=== PATIENT | male | born 1975 | race Caucasian/White ===

== ENCOUNTER → 2019-01-04 | Day surgery (SDC) | payer BC ==
[2018-12-31 16:43] LABS: ANION GAP 13.1 mmol/L (8-16); BLOOD UREA NITROGEN 14 mg/dL (7-26); BUN/CREATININE RATIO 16 (6-25); CALCIUM 9.8 mg/dL (8.4-10.2); CARBON DIOXIDE 27 mmol/L (22-29); CHLORIDE 105 mmol/L (98-107); CREATININE, SERUM 0.88 mg/dL (0.72-1.25); EST GLOMERULAR FILTRATION RATE > 60 ML/MIN (60-); GLUCOSE 87 mg/dL (74-118); POTASSIUM 4.1 mmol/L (3.5-5.1); SODIUM 141 mmol/L (136-145)
[~2019-01-04] MED LIST: ACETAMINOPHEN/CODEINE 300MG - 30MG TAB ONE; BUPIVACAINE HCL 0.5% 10ML MPF VIAL INJ ONE; CEFAZOLIN SOD 1 GM/NS 50ML 50 ML IV ONE; CRESTOR10 MG PO; DEXAMETHASONE SOD PHOS INJ 4 MG/ML VIAL ONE; FENTANYL CITRATE/PF 100MCG/2 ML INJ ONE; GLIMEPERIDE PO; KETAMINE HCL INJ 50 MG/ML 10 ML VIAL ONE; KETOROLAC TROMETHAMINE 30 MG/ML VIAL ONE; LIDOCAINE HCL 2% LOCAL INJ 5 ML SDV VIAL INJ ONE; METFORMIN HCL500 MG PO; MIDAZOLAM HCL 2 MG/2 ML VIAL ONE; MINOCYCLINE HC100 M1 PO; MUPIROCIN 2% OINT 22 GM TUBE ONE; OMEPRAZOLE40 MG PO; ONDANSETRON HCL INJ 2MG/ML 2ML 2 MG/ML VIAL ONE; PROPOFOL IV EMULSION 10 MG/ML 20 ML VIAL ONE; RANITIDINE HCL300 MG PO; SEVOFLURANE INHAL SOLN 250 ML PEN BTL ONE; TRIBENZOR 40-51 EAC1 PO
--- OUTSIDE RECORDS SUMMARY | 2019-01-04 05:21 | XMS REPORT | Continuity of Care Document ---
Author Author [facility] Interface Address Unknown Phone Unavailable Problems Problem Status Onset Date Classification Date Reported Comments Source EKG Active 12/01/2016 [facility] CHEST PAIN Active 09/12/2015 [facility] Diabetes Resolved Problem 12/04/2016 [facility] GERD (<span [id number]">Confirmed</span>) Resolved Problem 12/04/2016 [facility] Hyperlipidemia Resolved Problem 12/04/2016 [facility] Hypertension Resolved Problem 12/04/2016 [facility] Medications Medication Details Route Status Patient Instructions Ordering Provider Order Date Source Zocor 40 mg, 1 tab, Route: PO, Drug form: TAB, Bedtime, Dosing Weight 188.004, kg, Start date: 09/13/15 21:00:00, Duration: 30 day, Stop date: 10/12/15 21:00:00Notes: (Same as: Zocor) Inactive 09/14/2015 [facility] Protonix 40 mg, 1 tab, Route: PO, Drug form: ECTAB, Before Dinner, Start date: 09/13/15 16:30:00, Duration: 30 day, Stop date: 10/12/15 16:30:00Notes: Tablet should not be chewed or crushed. (Same as: Protonix) Inactive 09/13/2015 [facility] Norvasc 10 mg, 2 tab, Route: PO, Drug form: TAB, Daily, Start date: 09/13/15 9:00:00, Duration: 30 day, Stop date: 10/12/15 9:00:00Notes: (Same as: Norvasc) Inactive 09/13/2015 [facility] Benicar 40 mg, 2 tab, Route: PO, Drug form: TAB, Daily, Start date: 09/13/15 9:00:00, Duration: 30 day, Stop date: 10/12/15 9:00:00 Inactive 09/13/2015 [facility] Omeprazole 40 mg, Route: PO, Drug form: DRC, Daily, Dosing Weight 188.004, kg, Start date: 09/13/15 9:00:00, Duration: 30 day, Stop date: 10/12/15 9:00:00 No Longer Active 09/13/2015 [facility] Amlodipine 10 MG / Hydrochlorothiazide 25 MG / Olmesartan medoxomil 40 MG Oral Tablet [Tribenzor 40/10/25] 1 tab, Route: PO, Drug Form: TAB, Dosing Weight 188.004, kg, Daily, Start date: 09/13/15 9:00:00, Duration: 30 day, Stop date: 10/12/15 9:00:00 No Longer Active 09/13/2015 [facility] Aspirin 81 MG Enteric Coated Tablet 81 mg, 1 tab, Route: PO, Drug form: ECTAB, Daily, Dosing Weight 127.273, kg, Start date: 09/13/15 9:00:00, Duration: 30 day, Stop date: 10/12/15 9:00:00Notes: Do not crush or chew. (Same As: Ecotrin) Inactive 09/13/2015 [facility] Allopurinol 300 mg, 1 tab, Route: PO, Drug form: TAB, Daily, Dosing Weight 188.004, kg, Start date: 09/13/15 9:00:00, Duration: 30 day, Stop date: 10/12/15 9:00:00Notes: (Same as: Zyloprim) Inactive 09/13/2015 [facility] hydrochlorothiazide 25 mg oral tablet 25 mg, 1 tab, Route: PO, Drug form: TAB, Daily, Start date: 09/13/15 9:00:00, Duration: 30 day, Stop date: 10/12/15 9:00:00Notes: (Same as: Hydrodiuril) With food. Inactive 09/13/2015 [facility] Metformin hydrochloride 500 MG Oral Tablet 500 mg, 1 tab, Route: PO, Drug form: TAB, Before Breakfast, Dosing Weight 188.004, kg, Start date: 09/13/15 7:30:00, Duration: 30 day, Stop date: 10/12/15 7:30:00Notes: (Same as: Glucophage) Take with meal Inactive 09/13/2015 [facility] Acetaminophen 325 MG / Hydrocodone Bitartrate 5 MG Oral Tablet 1 tab, Route: PO, Drug Form: TAB, Dosing Weight 188.004, kg, Q6H, PRN Pain Score 4-6, Start date: 09/12/15 21:29:00, Duration: 30 day, Stop date: 10/12/15 21:28:00Notes: (Same as: [place] 325/5) Do not exceed 4gm/day of acetaminophen. No Longer Active 09/13/2015 [facility] Ambien 5 mg, Route: PO, Bedtime, Dosing Weight 188.004, kg, PRN as needed for sleep, Start date: 09/12/15 21:28:00, Duration: 30 day, Stop date: 10/12/15 21:27:00 Inactive 09/13/2015 [facility] Saline Flush 0.9% 10 ml, Route: IVP, Drug Form: INJ, Dosing Weight 127.273, kg, Q12H, Start date: 09/12/15 21:00:00, Duration: 30 day, Stop date: 10/12/15 9:00:00 Inactive 09/13/2015 [facility] BD Normal Saline Flush 10 mL, Route: IV, Drug Form: INJ, PRN, PRN Line Flush, Start date: 09/12/15 16:38:00, Duration: 30 day, Stop date: 10/12/15 16:37:00Notes: (Same as: BD Posiflush) No Longer Active 09/12/2015 [facility] Sodium Chloride 0.9% IV 25 mL, Route: IV, Start date: 09/12/15 16:38:00, Duration: 30 day, Stop date: 10/12/15 16:37:00, PRN Line Flush No Longer Active 09/12/2015 [facility] Simvastatin 40 MG Oral Tablet [Zocor] 40 mg=1 tab, PO, Bedtime, # 90 tab, 1 Refill(s) Active 09/12/2015 [facility] omeprazole 40 mg oral delayed release capsule 40 mg=1 cap, PO, Daily, # 30 cap, 0 Refill(s) Active 09/12/2015 [facility] Metformin hydrochloride 500 MG Oral Tablet 500 mg=1 tab, PO, Daily, take with a meal, # 30 tab, 1 Refill(s) Active 09/12/2015 [facility] Melatonin 3 MG Extended Release Tablet 3 mg, 1 tab, Route: PO, Drug Form: TAB, Dosing Weight 127.273, kg, Bedtime, PRN as needed for insomnia, Start date: 09/12/15 15:24:00, Duration: 30 day, Stop date: 10/12/15 15:23:00Notes: (Same as: Melatonin) No Longer Active 09/12/2015 [facility] Zofran 4 mg, 2 mL, Route: IV, Drug form: INJ, Q8H, Dosing Weight 127.273, kg, PRN as needed for nausea/vomiting, Start date: 09/12/15 15:24:00, Duration: 30 day, Stop date: 10/12/15 15:23:00Notes: (Same as: Zofran) MEDICATION WASTE Product Size: 4 mg Product Wasted: ___ mg No Longer Active 09/12/2015 [facility] Tylenol 650 mg, 2 tab, Route: PO, Drug form: TAB, Q6H, Dosing Weight 127.273, kg, PRN Pain 1-3/Temp > 100.4 F, Start date: 09/12/15 15:24:00, Stop date: 10/12/15 15:23:00Notes: Do not exceed 4 gm/day. (Same as: Tylenol) No Longer Active 09/12/2015 [facility] Insulin, Aspart, Human 4 unit, 0.04 mL, Route: SUB-Q, Drug form: SOLN, TID-Before Meals, Dosing Weight 127.273, kg, PRN Blood Glucose Results, Start date: 09/12/15 15:14:00, Duration: 30 day, Stop date: 10/12/15 15:13:00Notes: Roll in palms of hands gently; Do not shake vigorously. (Same as: NovoLOG) "single patient use only" WASTE: F/P - Black; E - Municipal Trash Bin Stable for 28 days at room temperature. Expires in days from Date No Longer Active 09/12/2015 [facility] Glucagon 1 mg, Route: IM, Drug form: PDR/INJ, PRN, Dosing Weight 127.273, kg, PRN Blood Glucose Results, Start date: 09/12/15 15:14:00, Duration: 30 day, Stop date: 10/12/15 15:13:00 No Longer Active 09/12/2015 [facility] Dextrose 50% Syringe 25 gm, 50 mL, Route: IVP, Drug Form: INJ, Dosing Weight 127.273, kg, PRN, PRN Blood Glucose Results, Start date: 09/12/15 15:14:00, Duration: 30 day, Stop date: 10/12/15 15:13:00 No Longer Active 09/12/2015 [facility] Saline Flush 0.9% 10 ml, Route: IVP, Drug Form: INJ, Dosing Weight 127.273, kg, PRN, PRN Line Flush, Start date: 09/12/15 15:13:00, Duration: 30 day, Stop date: 10/12/15 15:12:00Notes: (Same as: BD Posiflush) Inactive 09/12/2015 [facility] Nitroglycerin 0.4 mg, 1 tab, Route: SL, Drug form: TAB, Q5Min, Dosing Weight 127.273, kg, PRN Chest Pain, Start date: 09/12/15 15:13:00, Duration: 3 doses or times, Stop date: Limited # of timesNotes: (Same as:Sade Fultontat) "Do Not Crush" Sublingual tablet No Longer Active 09/12/2015 [facility] Omeprazole PO, Daily, 0 Refill(s) Inactive 09/12/2015 [facility] allopurinol 300 mg oral tablet 300 mg=1 tab, PO, Daily, 0 Refill(s) Active 09/12/2015 [facility] Amlodipine 10 MG / Hydrochlorothiazide 25 MG / Olmesartan medoxomil 40 MG Oral Tablet [Tribenzor 40/10/25] 1 tab, PO, Daily, 0 Refill(s) Active 09/12/2015 [facility] Nitroglycerin 0.4 MG Sublingual Tablet 0.4 mg, 1 tab, Route: SL, Drug form: TAB, ONCE, Dosing Weight 127.273, kg, Start date: 09/12/15 12:41:00, Stop date: 09/12/15 12:41:00Notes: (Same as:Nitroquick, Nitrostat) "Do Not Crush" Sublingual tablet Inactive 09/12/2015 [facility] Simvastatin PO, Bedtime, 0 Refill(s) Inactive 09/12/2015 [facility] Metformin PO, 0 Refill(s) Inactive 09/12/2015 [facility] Aspirin 81 MG Chewable Tablet 324 mg, 4 tab, Route: PO, Drug form: CHEWTAB, ONCE, Dosing Weight 127.273, kg, Priority: STAT, Start date: 09/12/15 12:38:00, Stop date: 09/12/15 12:38:00Notes: Take with food. Inactive 09/12/2015 [facility] Saline Flush 0.9% 10 mL, Route: IVP, Drug Form: INJ, kg, PRN, PRN Line Flush, Start date: 09/12/15 12:07:00, Duration: 30 day, Stop date: 10/12/15 12:06:00Notes: (Same as: BD Posiflush) Inactive 09/12/2015 [facility] Allergies, Adverse Reactions, Alerts Substance Category Reaction Severity Reaction type Status Date Reported Comments Source Immunizations Immunization Date Given Site Status Last Updated Comments Source Results Order Name Results Value Reference Range Date Interpretation Comments Source CARDIAC ENZYMES CK MB Index 0.4 0.0 - 2.5 09/13/2015 [facility] CARDIAC ENZYMES CK MB 0.8 ng/mL 0.5 - 3.6 09/13/2015 [facility] CARDIAC ENZYMES Total CK 181 unit/L 12 - 191 09/13/2015 [facility] CARDIAC ENZYMES Troponin-I null 0.00 - 0.40 09/13/2015 [facility] CARDIAC ENZYMES CK MB Index null 0.0 - 2.5 09/13/2015 [facility] CARDIAC ENZYMES CK MB null 0.5 - 3.6 09/13/2015 [facility] CARDIAC ENZYMES Total CK 190 unit/L 12 - 191 09/13/2015 [facility] CARDIAC ENZYMES Troponin-I null 0.00 - 0.40 09/13/2015 [facility] LIPIDS VLDL 39 09/12/2015 [facility] LIPIDS LDL (Calculated) 64 mg/dL <=99 mg/dL 09/12/2015 [facility] LIPIDS CHD Risk 3.64 4.00 - 7.30 09/12/2015 [facility] LIPIDS HDL 39 mg/dL >=61 mg/dL 09/12/2015 [facility] LIPIDS Chol 142 mg/dL <=199 mg/dL 09/12/2015 [facility] LIPIDS Trig 195 mg/dL <=149 mg/dL 09/12/2015 [facility] SPECIAL CHEMISTRY Hgb A1C 7.3 % <=5.6 % 09/12/2015 [facility] CARDIAC ENZYMES Troponin-I null 0.00 - 0.40 09/12/2015 [facility] CARDIAC ENZYMES CK MB 0.7 ng/mL 0.5 - 3.6 09/12/2015 [facility] CARDIAC ENZYMES Total CK 179 unit/L 12 - 191 09/12/2015 [facility] CARDIAC ENZYMES CK MB Index 0.4 0.0 - 2.5 09/12/2015 [facility] ELECTROLYTES AGAP 13.6 meq/L 10.0 - 20.0 09/12/2015 [facility] ELECTROLYTES Chloride Lvl 102 meq/L 95 - 109 09/12/2015 [facility] ELECTROLYTES CO2 26 meq/L 24 - 32 09/12/2015 [facility] ELECTROLYTES Calcium Lvl 9.2 mg/dL 8.5 - 10.5 09/12/2015 [facility] ELECTROLYTES Albumin Lvl 3.6 g/dL 3.5 - 5.0 09/12/2015 [facility] ELECTROLYTES BUN 12 mg/dL 7 - 22 09/12/2015 [facility] ELECTROLYTES Sodium Lvl 138 meq/L 135 - 145 09/12/2015 [facility] ELECTROLYTES Potassium Lvl 3.6 meq/L 3.5 - 5.1 09/12/2015 [facility] ELECTROLYTES eGFR 113 mL/min/1.73m2 09/12/2015 Result Comment: The eGFR is calculated using the CKD-EPI formula. In most young, healthy individuals the eGFR will be >90 mL/min/1.73m2. The eGFR declines with age. An eGFR of 60-89 may be normal in some populations, particularly the elderly, for whom the CKD-EPI formula has not been extensively validated. Use of the eGFR is not recommended in the following populations: Individuals with unstable creatinine concentrations, including patients and those with serious co-morbid conditions. Patients with extremes in muscle mass or diet. The data above are obtained from the National Kid[employer] Education Program (NKDEP) which additionally recommends that when the eGFR is used in patients with extremes of body mass index for purposes of drug dosing, the eGFR should be multiplied by the estimated BMI. [facility] ELECTROLYTES AST 23 unit/L 0 - 37 09/12/2015 [facility] ELECTROLYTES Alk Phos 100 unit/L 39 - 136 09/12/2015 [facility] ELECTROLYTES Total Protein 7.2 g/dL 6.4 - 8.4 09/12/2015 [facility] ELECTROLYTES Glucose Lvl 107 mg/dL 70 - 99 09/12/2015 [facility] ELECTROLYTES Creatinine Lvl 0.78 mg/dL 0.50 - 1.40 09/12/2015 [facility] ELECTROLYTES ALT 44 unit/L 0 - 65 09/12/2015 [facility] ELECTROLYTES Globulin 3.6 g/dL 2.0 - 4.0 09/12/2015 [facility] ELECTROLYTES A/G Ratio 1.0 0.7 - 1.6 09/12/2015 [facility] ELECTROLYTES Bili Total 0.6 mg/dL 0.2 - 1.3 09/12/2015 [facility] ELECTROLYTES B/C Ratio 15 6 - 25 09/12/2015 [facility] HEMATOLOGY Basophils # 0.1 K/CMM 0.0 - 0.2 09/12/2015 [facility] HEMATOLOGY Eosinophils # 0.3 K/CMM 0.0 - 0.5 09/12/2015 [facility] HEMATOLOGY Monocytes # 0.5 K/CMM 0.0 - 0.8 09/12/2015 [facility] HEMATOLOGY Lymphocytes # 2.4 K/CMM 1.0 - 5.5 09/12/2015 [facility] HEMATOLOGY Segs-Bands # 7.6 K/CMM 1.5 - 8.1 09/12/2015 [facility] HEMATOLOGY Basophils 0.8 % 0.0 - 1.0 09/12/2015 [facility] HEMATOLOGY Monocytes 4.2 % 2.0 - 12.0 09/12/2015 [facility] HEMATOLOGY Eosinophils 2.9 % 0.0 - 4.0 09/12/2015 [facility] HEMATOLOGY Lymphocytes 22.2 % 20.0 - 40.0 09/12/2015 [facility] HEMATOLOGY Segs 69.9 % 45.0 - 75.0 09/12/2015 [facility] HEMATOLOGY MPV 8.6 fL 7.4 - 10.4 09/12/2015 [facility] HEMATOLOGY Platelet 222 K/CMM 133 - 450 09/12/2015 [facility] HEMATOLOGY RDW 13.9 % 11.5 - 14.5 09/12/2015 [facility] HEMATOLOGY MCV 83.1 fL 80.0 - 94.0 09/12/2015 [facility] HEMATOLOGY MCHC 33.0 g/dL 32.0 - 36.0 09/12/2015 [facility] HEMATOLOGY MCH 27.5 pg 27.0 - 31.0 09/12/2015 [facility] HEMATOLOGY Hct 42.6 % 42.0 - 54.0 09/12/2015 [facility] HEMATOLOGY Hgb 14.1 g/dL 14.0 - 18.0 09/12/2015 [facility] HEMATOLOGY RBC 5.13 M/CMM 4.70 - 6.10 09/12/2015 [facility] HEMATOLOGY WBC 10.9 K/CMM 3.7 - 10.4 09/12/2015 [facility] HEMATOLOGY PTT 26.9 s 22.9 - 35.8 09/12/2015 [facility] HEMATOLOGY INR 0.93 0.85 - 1.17 09/12/2015 [facility] HEMATOLOGY PT 12.8 s 12.0 - 14.7 09/12/2015 [facility] Chest 2 views DX Chest 2 views DX Exam: Two-view chest x-ray Reason for Exam: Chest pain Comparison Exam: None Discussion: Cardiomediastinal silhouette is within normal limits. Both hemidiaphragms well visualized. No pulmonary edema or pleural effusions. No focal lung consolidations. Trachea is midline. No acute bony abnormalities. Impression: 1. No acute cardiopulmonary abnormalities. 09/12/2015 - - Read by: Gerard Reddy MD Dictated Date/time: 09/12/15 12:34 Electronically Signed by: Gerard Reddy MD 09/12/15 12:35 FINAL REPORT [facility] Vital Signs Vital Sign Value Date Comments Source Heart Rate 70 09/13/2015 [facility] Temperature Oral (F) 97.5 F 09/13/2015 [facility] Systolic (mm Hg) 130 09/13/2015 [facility] Diastolic (mm Hg) 82 09/13/2015 [facility] Temperature Oral (F) 97.6 F 09/13/2015 [facility] Heart Rate 66 09/13/2015 [facility] Systolic (mm Hg) 97 09/13/2015 [facility] Diastolic (mm Hg) 61 09/13/2015 [facility] Respitory Rate 18 09/13/2015 [facility] Temperature Oral (F) 98 F 09/13/2015 [facility] Heart Rate 67 09/13/2015 [facility] Systolic (mm Hg) 127 09/13/2015 [facility] Diastolic (mm Hg) 71 09/13/2015 [facility] Respitory Rate 18 09/13/2015 [facility] Respitory Rate 18 09/13/2015 [facility] Weight 188.004 09/12/2015 [facility] BMI Calculated 54.68 09/12/2015 [facility] Height 185.42 cm 09/12/2015 [facility] Height 180.34 cm 09/12/2015 [facility] BMI Calculated 39.13 09/12/2015 [facility] Weight 127.273 09/12/2015 [facility] Encounters Location Location Details Encounter Type Encounter Number Reason For Visit Attending Provider ADM Date DC Date Status Source [facility] OBS Observation Patient [id number] Mike Maddoxboazmoneangeline 09/12/2015 09/13/2015 [facility] Outpatient [id number] Gulshan Greco 12/01/2016 12/02/2016 [facility] Procedures Procedure Code Date Perfomer Comments Source Hernia repair [id number] [facility] Miscellaneous operations<sup>1</sup> [id number] hernia repair [facility]
--- OUTSIDE RECORDS SUMMARY | 2019-01-04 05:22 | XMS REPORT | Summary of Care ---
Author Author [facility] Organization [facility] Address Unknown Phone Unavailable Encounter KASH Su(STEPHEN) [id number] Date(s): 09/12/15 - 09/13/15 [facility] [address] [place] [address]- Discharge Disposition: Home Attending Physician: Mike Motta MD Admitting Physician: Mike Motta MD Vital Signs 1 2 3 Most recent to oldest [Reference Range]: 185.42 cm (09/12/15 4:58 PM) 180.34 cm (09/12/15 12:03 PM) Height 97.5 DegF (09/13/15 11:49 AM) 97.6 DegF (09/13/15 7:47 AM) 98 DegF (09/13/15 4:00 AM) Temperature Oral [96.4-99.1 DegF] 130/82 mmHg (09/13/15 11:49 AM) 97/61 mmHg (09/13/15 7:47 AM) 127/71 mmHg (09/13/15 4:00 AM) Blood Pressure [90-140/60-90 mmHg] 18 BRMIN (09/13/15 4:00 AM) 18 BRMIN (09/13/15 12:00 AM) 18 BRMIN (09/12/15 8:00 PM) Respiratory Rate [14-20 BRMIN] 70 bpm (09/13/15 11:49 AM) 66 bpm (09/13/15 7:47 AM) 67 bpm (09/13/15 4:00 AM) Peripheral Pulse Rate [60-100 bpm] 188.004 kg (09/12/15 4:58 PM) 127.273 kg (09/12/15 12:03 PM) Weight 54.68 m2 (09/12/15 4:58 PM) 39.13 m2 (09/12/15 12:03 PM) Body Mass Index Problem List Condition Effective Dates Status Health Status Informant Diabetes(Confirmed) Resolved GERD Resolved (gastroesophageal reflux disease)(Confirmed) Hyperlipidemia(Confi Resolved rmed) Hypertension(Confirm Resolved ed) Allergies, Adverse Reactions, Alerts Substance Reaction Severity Status NKDA Active Medications acetaminophen-hydrocodone 325 mg-5 mg oral tablet 1 tab, Route: PO, Drug Form: TAB, Dosing Weight 188.004, kg, Q6H, PRN Pain Score 4-6, Start date: 09/12/15 21:29:00, Duration: 30 day, Stop date: 10/12/15 21:28 :00 Notes: (Same as: [place] 325/5) Do not exceed 4gm/day of acetaminophen. Start Date: 09/12/15 Stop Date: 09/13/15 Status: Discontinued allopurinol 300 mg, 1 tab, Route: PO, Drug form: TAB, Daily, Dosing Weight 188.004, kg, Star t date: 09/13/15 9:00:00, Duration: 30 day, Stop date: 10/12/15 9:00:00 Notes: (Same as: Zyloprim) Start Date: 09/13/15 Stop Date: 09/13/15 Status: Discontinued allopurinol 300 mg oral tablet 300 mg=1 tab, PO, Daily, 0 Refill(s) Start Date: 09/12/15 Status: Ordered Ambien 5 mg, Route: PO, Bedtime, Dosing Weight 188.004, kg, PRN as needed for sleep, St art date: 09/12/15 21:28:00, Duration: 30 day, Stop date: 10/12/15 21:27:00 Start Date: 09/12/15 Stop Date: 09/12/15 Status: Discontinued aspirin 81 mg tablet, chewable 324 mg, 4 tab, Route: PO, Drug form: CHEWTAB, ONCE, Dosing Weight 127.273, kg, P riority: STAT, Start date: 09/12/15 12:38:00, Stop date: 09/12/15 12:38:00 Notes: Take with food. Start Date: 09/12/15 Stop Date: 09/12/15 Status: Completed aspirin 81 mg tablet, enteric coated 81 mg, 1 tab, Route: PO, Drug form: ECTAB, Daily, Dosing Weight 127.273, kg, Sta rt date: 09/13/15 9:00:00, Duration: 30 day, Stop date: 10/12/15 9:00:00 Notes: Do not crush or chew.(Same As: Ecotrin) Start Date: 09/13/15 Stop Date: 09/13/15 Status: Discontinued BD Normal Saline Flush 10 mL, Route: IV, Drug Form: INJ, PRN, PRN Line Flush, Start date: 09/12/15 16:3 8:00, Duration: 30 day, Stop date: 10/12/15 16:37:00 Notes: (Same as: BD Posiflush) Start Date: 09/12/15 Stop Date: 09/13/15 Status: Discontinued BD Normal Saline Flush 5 mL, Route: IV, Drug Form: INJ, PRN, PRN Line Flush, Start date: 09/12/15 16:38 :00, Duration: 30 day, Stop date: 10/12/15 16:37:00 Notes: (Same as: BD Posiflush) Start Date: 09/12/15 Stop Date: 09/13/15 Status: Discontinued Benicar 40 mg, 2 tab, Route: PO, Drug form: TAB, Daily, Start date: 09/13/15 9:00:00, Du ration: 30 day, Stop date: 10/12/15 9:00:00 Start Date: 09/13/15 Stop Date: 09/13/15 Status: Discontinued Dextrose 50% Syringe 25 gm, 50 mL, Route: IVP, Drug Form: INJ, Dosing Weight 127.273, kg, PRN, PRN Bl ood Glucose Results, Start date: 09/12/15 15:14:00, Duration: 30 day, Stop date: 10/12/15 15:13:00 Start Date: 09/12/15 Stop Date: 09/13/15 Status: Discontinued Dextrose 50% Syringe 12.5 gm, 25 mL, Route: IVP, Drug Form: INJ, Dosing Weight 127.273, kg, PRN, PRN Blood Glucose Results, Start date: 09/12/15 15:14:00, Duration: 30 day, Stop valerie e: 10/12/15 15:13:00 Start Date: 09/12/15 Stop Date: 09/13/15 Status: Discontinued glucagon 1 mg, Route: IM, Drug form: PDR/INJ, PRN, Dosing Weight 127.273, kg, PRN Blood G lucose Results, Start date: 09/12/15 15:14:00, Duration: 30 day, Stop date: 11/23 15:13:00 Start Date: 09/12/15 Stop Date: 09/13/15 Status: Discontinued hydrochlorothiazide 25 mg oral tablet 25 mg, 1 tab, Route: PO, Drug form: TAB, Daily, Start date: 09/13/15 9:00:00, Du ration: 30 day, Stop date: 10/12/15 9:00:00 Notes: (Same as: Hydrodiuril) With food. Start Date: 09/13/15 Stop Date: 09/13/15 Status: Discontinued insulin aspart 4 unit, 0.04 mL, Route: SUB-Q, Drug form: SOLN, TID-Before Meals, Dosing Weight 127.273, kg, PRN Blood Glucose Results, Start date: 09/12/15 15:14:00, Duration: 30 day, Stop date: 10/12/15 15:13:00 Notes: Roll in palms of hands gently; Do not shake vigorously. (Same as: Kunal Hinkle)"single patient use only"WASTE: F/P - Black; E - Municipal Trash Bin Stable f or 28 days at room temperature.Expires in days from Date Start Date: 09/12/15 Stop Date: 09/13/15 Status: Discontinued insulin aspart 2 unit, 0.02 mL, Route: SUB-Q, Drug form: SOLN, TID-Before Meals, Dosing Weight 127.273, kg, PRN Blood Glucose Results, Start date: 09/12/15 15:14:00, Duration: 30 day, Stop date: 10/12/15 15:13:00 Notes: Roll in palms of hands gently; Do not shake vigorously. (Same as: Kunal Hinkle)"single patient use only"WASTE: F/P - Black; E - Municipal Trash Bin Stable f or 28 days at room temperature.Expires in days from Date Start Date: 09/12/15 Stop Date: 09/13/15 Status: Discontinued insulin aspart 10 unit, 0.1 mL, Route: SUB-Q, Drug form: SOLN, TID-Before Meals, Dosing Weight 127.273, kg, PRN Blood Glucose Results, Start date: 09/12/15 15:14:00, Duration: 30 day, Stop date: 10/12/15 15:13:00 Notes: Roll in palms of hands gently; Do not shake vigorously. (Same as: Kunal Hinkle)"single patient use only"WASTE: F/P - Black; E - Municipal Trash Bin Stable f or 28 days at room temperature.Expires in days from Date Start Date: 09/12/15 Stop Date: 09/13/15 Status: Discontinued insulin aspart 8 unit, 0.08 mL, Route: SUB-Q, Drug form: SOLN, TID-Before Meals, Dosing Weight 127.273, kg, PRN Blood Glucose Results, Start date: 09/12/15 15:14:00, Duration: 30 day, Stop date: 10/12/15 15:13:00 Notes: Roll in palms of hands gently; Do not shake vigorously. (Same as: Kunal Hinkle)"single patient use only"WASTE: F/P - Black; E - Municipal Trash Bin Stable f or 28 days at room temperature.Expires in days from Date Start Date: 09/12/15 Stop Date: 09/13/15 Status: Discontinued insulin aspart 6 unit, 0.06 mL, Route: SUB-Q, Drug form: SOLN, TID-Before Meals, Dosing Weight 127.273, kg, PRN Blood Glucose Results, Start date: 09/12/15 15:14:00, Duration: 30 day, Stop date: 10/12/15 15:13:00 Notes: Roll in palms of hands gently; Do not shake vigorously. (Same as: Kunal Hinkle)"single patient use only"WASTE: F/P - Black; E - Municipal Trash Bin Stable f or 28 days at room temperature.Expires in days from Date Start Date: 09/12/15 Stop Date: 09/13/15 Status: Discontinued insulin aspart 4 unit, 0.04 mL, Route: SUB-Q, Drug form: SOLN, Bedtime, Dosing Weight 127.273, kg, PRN Blood Glucose Results, Start date: 09/12/15 15:14:00, Duration: 30 day, Stop date: 10/12/15 15:13:00 Notes: Roll in palms of hands gently; Do not shake vigorously. (Same as: Kunal Hinkle)"single patient use only"WASTE: F/P - Black; E - Municipal Trash Bin Stable f or 28 days at room temperature.Expires in days from Date Start Date: 09/12/15 Stop Date: 09/13/15 Status: Discontinued insulin aspart 2 unit, 0.02 mL, Route: SUB-Q, Drug form: SOLN, Bedtime, Dosing Weight 127.273, kg, PRN Blood Glucose Results, Start date: 09/12/15 15:14:00, Duration: 30 day, Stop date: 10/12/15 15:13:00 Notes: Roll in palms of hands gently; Do not shake vigorously. (Same as: Kunal Hinkle)"single patient use only"WASTE: F/P - Black; E - Municipal Trash Bin Stable f or 28 days at room temperature.Expires in days from Date Start Date: 09/12/15 Stop Date: 09/13/15 Status: Discontinued insulin aspart 1 unit, 0.01 mL, Route: SUB-Q, Drug form: SOLN, Bedtime, Dosing Weight 127.273, kg, PRN Blood Glucose Results, Start date: 09/12/15 15:14:00, Duration: 30 day, Stop date: 10/12/15 15:13:00 Notes: Roll in palms of hands gently; Do not shake vigorously. (Same as: Kunal Hinkle)"single patient use only"WASTE: F/P - Black; E - Municipal Trash Bin Stable f or 28 days at room temperature.Expires in days from Date Start Date: 09/12/15 Stop Date: 09/13/15 Status: Discontinued insulin aspart 3 unit, 0.03 mL, Route: SUB-Q, Drug form: SOLN, Bedtime, Dosing Weight 127.273, kg, PRN Blood Glucose Results, Start date: 09/12/15 15:14:00, Duration: 30 day, Stop date: 10/12/15 15:13:00 Notes: Roll in palms of hands gently; Do not shake vigorously. (Same as: NovoLO G)"single patient use only"WASTE: F/P - Black; E - Municipal Trash Bin Stable f or 28 days at room temperature.Expires in days from Date Start Date: 09/12/15 Stop Date: 09/13/15 Status: Discontinued melatonin 3 mg oral tablet 3 mg, 1 tab, Route: PO, Drug Form: TAB, Dosing Weight 127.273, kg, Bedtime, PRN as needed for insomnia, Start date: 09/12/15 15:24:00, Duration: 30 day, Stop da te: 10/12/15 15:23:00 Notes: (Same as: Melatonin) Start Date: 09/12/15 Stop Date: 09/13/15 Status: Discontinued metFORMIN PO, 0 Refill(s) Start Date: 09/12/15 Stop Date: 09/12/15 Status: Completed metFORMIN 500 mg oral tablet 500 mg, 1 tab, Route: PO, Drug form: TAB, Before Breakfast, Dosing Weight 188.00 4, kg, Start date: 09/13/15 7:30:00, Duration: 30 day, Stop date: 10/12/15 7:30: 00 Notes: (Same as: Glucophage) Take with meal Start Date: 09/13/15 Stop Date: 09/13/15 Status: Discontinued metFORMIN 500 mg oral tablet 500 mg=1 tab, PO, Daily, take with a meal, # 30 tab, 1 Refill(s) Start Date: 09/12/15 Status: Ordered nitroglycerin 0.4 mg sublingual tablet 0.4 mg, 1 tab, Route: SL, Drug form: TAB, ONCE, Dosing Weight 127.273, kg, Start date: 09/12/15 12:41:00, Stop date: 09/12/15 12:41:00 Notes: (Same as:Nitroquick, Nitrostat)"Do Not Crush" Sublingual tablet Start Date: 09/12/15 Stop Date: 09/12/15 Status: Completed nitroglycerin SL Tab 0.4 mg, 1 tab, Route: SL, Drug form: TAB, Q5Min, Dosing Weight 127.273, kg, PRN Chest Pain, Start date: 09/12/15 15:13:00, Duration: 3 doses or times, Stop date : Limited # of times Notes: (Same as:Nitroquick, Nitrostat)"Do Not Crush" Sublingual tablet Start Date: 09/12/15 Stop Date: 09/13/15 Status: Discontinued Norvasc 10 mg, 2 tab, Route: PO, Drug form: TAB, Daily, Start date: 09/13/15 9:00:00, Du ration: 30 day, Stop date: 10/12/15 9:00:00 Notes: (Same as: Norvasc) Start Date: 09/13/15 Stop Date: 09/13/15 Status: Discontinued omeprazole PO, Daily, 0 Refill(s) Start Date: 09/12/15 Stop Date: 09/12/15 Status: Completed omeprazole 40 mg, Route: PO, Drug form: DRC, Daily, Dosing Weight 188.004, kg, Start date: 09/13/15 9:00:00, Duration: 30 day, Stop date: 10/12/15 9:00:00 Start Date: 09/13/15 Stop Date: 09/12/15 Status: Deleted omeprazole 40 mg oral delayed release capsule 40 mg=1 cap, PO, Daily, # 30 cap, 0 Refill(s) Start Date: 09/12/15 Status: Ordered Protonix 40 mg, 1 tab, Route: PO, Drug form: ECTAB, Before Dinner, Start date: 09/13/15 1 6:30:00, Duration: 30 day, Stop date: 10/12/15 16:30:00 Notes: Tablet should not be chewed or crushed.(Same as: Protonix) Start Date: 09/13/15 Stop Date: 09/13/15 Status: Discontinued Saline Flush 0.9% 10 mL, Route: IVP, Drug Form: INJ, kg, PRN, PRN Line Flush, Start date: 09/12/15 12:07:00, Duration: 30 day, Stop date: 10/12/15 12:06:00 Notes: (Same as: BD Posiflush) Start Date: 09/12/15 Stop Date: 09/12/15 Status: Discontinued Saline Flush 0.9% 10 ml, Route: IVP, Drug Form: INJ, Dosing Weight 127.273, kg, Q12H, Start date: 09/12/15 21:00:00, Duration: 30 day, Stop date: 10/12/15 9:00:00 Start Date: 09/12/15 Stop Date: 09/12/15 Status: Deleted Saline Flush 0.9% 10 ml, Route: IVP, Drug Form: INJ, Dosing Weight 127.273, kg, PRN, PRN Line Flus h, Start date: 09/12/15 15:13:00, Duration: 30 day, Stop date: 10/12/15 15:12:00 Notes: (Same as: BD Posiflush) Start Date: 09/12/15 Stop Date: 09/12/15 Status: Discontinued simvastatin PO, Bedtime, 0 Refill(s) Start Date: 09/12/15 Stop Date: 09/12/15 Status: Completed Sodium Chloride 0.9% IV 25 mL, Route: IV, Start date: 09/12/15 16:38:00, Duration: 30 day, Stop date: 16:37:00, PRN Line Flush Start Date: 09/12/15 Stop Date: 09/13/15 Status: Discontinued Tribenzor 40 mg-10 mg-25 mg oral tablet 1 tab, PO, Daily, 0 Refill(s) Start Date: 09/12/15 Status: Ordered Tribenzor 40 mg-10 mg-25 mg oral tablet 1 tab, Route: PO, Drug Form: TAB, Dosing Weight 188.004, kg, Daily, Start date: 09/13/15 9:00:00, Duration: 30 day, Stop date: 10/12/15 9:00:00 Start Date: 09/13/15 Stop Date: 09/12/15 Status: Deleted Tylenol 650 mg, 2 tab, Route: PO, Drug form: TAB, Q6H, Dosing Weight 127.273, kg, PRN Pa in 1-3/Temp > 100.4 F, Start date: 09/12/15 15:24:00, Stop date: 10/12/15 15:23:00 Notes: Do not exceed 4 gm/day. (Same as: Tylenol) Start Date: 09/12/15 Stop Date: 09/13/15 Status: Discontinued Zocor 40 mg, 1 tab, Route: PO, Drug form: TAB, Bedtime, Dosing Weight 188.004, kg, Sta rt date: 09/13/15 21:00:00, Duration: 30 day, Stop date: 10/12/15 21:00:00 Notes: (Same as: Zocor) Start Date: 09/13/15 Stop Date: 09/13/15 Status: Canceled Zocor 40 mg oral tablet 40 mg=1 tab, PO, Bedtime, # 90 tab, 1 Refill(s) Start Date: 09/12/15 Stop Date: 12/11/15 Status: Ordered Zofran 4 mg, 2 mL, Route: IV, Drug form: INJ, Q8H, Dosing Weight 127.273, kg, PRN as ne eded for nausea/vomiting, Start date: 09/12/15 15:24:00, Duration: 30 day, Stop date: 10/12/15 15:23:00 Notes: (Same as: Zofran) MEDICATION WASTE Product Size: 4 mgProduct Was avi: ___ mg Start Date: 09/12/15 Stop Date: 09/13/15 Status: Discontinued Results ELECTROLYTES 1 2 3 Most recent to oldest [Reference Range]: 138 mEq/L (09/12/15 12:59 PM) Sodium Lvl [135-145 mEq/L] 3.6 mEq/L (09/12/15 12:59 PM) Potassium Lvl [3.5-5.1 mEq/L] 102 mEq/L (09/12/15 12:59 PM) Chloride Lvl [95-109 mEq/L] 26 mEq/L (09/12/15 12:59 PM) CO2 [24-32 mEq/L] 13.6 mEq/L (09/12/15 12:59 PM) AGAP [10.0-20.0 mEq/L] CHEM PANEL 1 2 3 Most recent to oldest [Reference Range]: 0.78 mg/dL (09/12/15 12:59 PM) Creatinine Lvl [0.50-1.40 mg/dL] 113 mL/min/1.73m2 1 *NA* (09/12/15 12:59 PM) eGFR 12 mg/dL (09/12/15 12:59 PM) BUN [7-22 mg/dL] 15 (09/12/15 12:59 PM) B/C Ratio [6-25] 107 mg/dL *HI* (09/12/15 12:59 PM) Glucose Lvl [70-99 mg/dL] 7.2 g/dL (09/12/15 12:59 PM) Total Protein [6.4-8.4 g/dL] 3.6 g/dL (09/12/15 12:59 PM) Albumin Lvl [3.5-5.0 g/dL] 3.6 g/dL (09/12/15 12:59 PM) Globulin [2.0-4.0 g/dL] 1.0 (09/12/15 12:59 PM) A/G Ratio [0.7-1.6] 9.2 mg/dL (09/12/15 12:59 PM) Calcium Lvl [8.5-10.5 mg/dL] 44 unit/L (09/12/15 12:59 PM) ALT [0-65 unit/L] 23 unit/L (09/12/15 12:59 PM) AST [0-37 unit/L] 100 unit/L (09/12/15 12:59 PM) Alk Phos [39-136 unit/L] 0.6 mg/dL (09/12/15 12:59 PM) Bili Total [0.2-1.3 mg/dL] 1Result Comment: The eGFR is calculated using the [...] from the National Kidney Disease Education Program ( NKDEP) which additionally recommends that when the eGFR is used in patients with extremes of body mass index for purposes of drug dosing, the eGFR should be mul tiplied by the estimated BMI. CARDIAC ENZYMES 1 2 3 Most recent to oldest [Reference Range]: 181 unit/L (09/13/15 1:18 AM) 190 unit/L (09/12/15 6:33 PM) 179 unit/L (09/12/15 12:59 PM) Total CK [12-191 unit/L] 0.8 ng/mL (09/13/15 1:18 AM) <0.5 ng/mL (09/12/15 6:33 PM) 0.7 ng/mL (09/12/15 12:59 PM) CK MB [0.5-3.6 ng/mL] 0.4 (09/13/15 1:18 AM) <0.3 (09/12/15 6:33 PM) 0.4 (09/12/15 12:59 PM) CK MB Index [0.0-2.5] <0.02 ng/mL (09/13/15 1:18 AM) <0.02 ng/mL (09/12/15 6:33 PM) <0.02 ng/mL (09/12/15 12:59 PM) Troponin-I [0.00-0.40 ng/mL] LIPIDS 1 2 3 Most recent to oldest [Reference Range]: 3.64 *LOW* (09/12/15 3:13 PM) CHD Risk [4.00-7.30] 142 mg/dL (09/12/15 3:13 PM) Chol [<=199 mg/dL] 195 mg/dL *HI* (09/12/15 3:13 PM) Trig [<=149 mg/dL] 39 mg/dL *LOW* (09/12/15 3:13 PM) HDL [>=61 mg/dL] 64 mg/dL (09/12/15 3:13 PM) LDL (Calculated) [<=99 mg/dL] 39 *NA* (09/12/15 3:13 PM) VLDL SPECIAL CHEMISTRY 1 2 3 Most recent to oldest [Reference Range]: 7.3 % *HI* (09/12/15 3:13 PM) Hgb A1C [<=5.6 %] HEMATOLOGY 1 2 3 Most recent to oldest [Reference Range]: 10.9 K/CMM *HI* (09/12/15 12:59 PM) WBC [3.7-10.4 K/CMM] 5.13 M/CMM (09/12/15 12:59 PM) RBC [4.70-6.10 M/CMM] 14.1 g/dL (09/12/15 12:59 PM) Hgb [14.0-18.0 g/dL] 42.6 % (09/12/15 12:59 PM) Hct [42.0-54.0 %] 83.1 fL (09/12/15 12:59 PM) MCV [80.0-94.0 fL] 27.5 pg (09/12/15 12:59 PM) MCH [27.0-31.0 pg] 33.0 g/dL (09/12/15 12:59 PM) MCHC [32.0-36.0 g/dL] 13.9 % (09/12/15 12:59 PM) RDW [11.5-14.5 %] 222 K/CMM (09/12/15 12:59 PM) Platelet [133-450 K/CMM] 8.6 fL (09/12/15 12:59 PM) MPV [7.4-10.4 fL] 69.9 % (09/12/15 12:59 PM) Segs [45.0-75.0 %] 22.2 % (09/12/15 12:59 PM) Lymphocytes [20.0-40.0 %] 4.2 % (09/12/15 12:59 PM) Monocytes [2.0-12.0 %] 2.9 % (09/12/15 12:59 PM) Eosinophils [0.0-4.0 %] 0.8 % (09/12/15 12:59 PM) Basophils [0.0-1.0 %] 7.6 K/CMM (09/12/15 12:59 PM) Segs-Bands # [1.5-8.1 K/CMM] 2.4 K/CMM (09/12/15 12:59 PM) Lymphocytes # [1.0-5.5 K/CMM] 0.5 K/CMM (09/12/15 12:59 PM) Monocytes # [0.0-0.8 K/CMM] 0.3 K/CMM (09/12/15 12:59 PM) Eosinophils # [0.0-0.5 K/CMM] 0.1 K/CMM (09/12/15 12:59 PM) Basophils # [0.0-0.2 K/CMM] 12.8 seconds (09/12/15 12:59 PM) PT [12.0-14.7 seconds] 0.93 (09/12/15 12:59 PM) INR [0.85-1.17] 26.9 seconds (09/12/15 12:59 PM) PTT [22.9-35.8 seconds] Immunizations No data available for this section Procedures Procedure Date Related Diagnosis Body Site Hernia repair Miscellaneous operations1 1hernia repair Social History Social History Type Response Smoking Status Former smoker; Exposure to Tobacco Smoke None; Cigarette Smoking Last 365 Days No; Reg Smoking Cessation Counseling No Assessment and Plan Extracted from: Title: General Admission H&P * Author: Tito Castellon MD Date: 09/12/15 Impression and Plan 1. Atypical chest pain - seems to be musculoskeletal. Nevertheless, I will order serial cardiac enzymes and start Aspirin and NTG. 2. Diabetes mellitus Type 2 uncontrolled (A1c 7.3) - monitor glucoses. I will order ISS. 3. Hypertension - continue home BP meds. 4. Hyperlipidemia - continue simvastatin. 5. Obesity (BMI 39) - weight loss encouraged.
--- OUTSIDE RECORDS SUMMARY | 2019-01-04 05:22 | XMS REPORT | Summary of Care ---
Author Author [facility] Organization [facility] Address Unknown Phone Unavailable Encounter HQ June_mick(FIN) [id number] Date(s): 12/01/16 - 12/01/[address] [address]- Discharge Disposition: Home or Self Care Attending Physician: Gulshan Greco MD Admitting Physician: Gulshan Greco MD Vital Signs No data available for this section Problem List Condition Effective Dates Status Health Status Informant Diabetes(Confirmed) Resolved GERD Resolved (gastroesophageal reflux disease)(Confirmed) Hyperlipidemia(Confi Resolved rmed) Hypertension(Confirm Resolved ed) Allergies, Adverse Reactions, Alerts Substance Reaction Severity Status NKDA Active Medications No data available for this section Results No data available for this section Immunizations No data available for this section Procedures Procedure Date Related Diagnosis Body Site Hernia repair Miscellaneous operations1 1hernia repair Social History Social History Type Response Smoking Status Former smoker; Exposure to Tobacco Smoke None; Cigarette Smoking Last 365 Days No; Reg Smoking Cessation Counseling No Assessment and Plan No data available for this section
[2019-01-04 08:45] VITALS: BP 120/64
--- NOTE | 2019-01-04 11:53 | Operative Report ---
DATE OF PROCEDURE: 01/04/2019 SURGEON: Dennis Wallace MD PREOPERATIVE DIAGNOSIS: Stenosing tenosynovitis of right long finger. POSTOPERATIVE DIAGNOSIS: Stenosing tenosynovitis of right long finger. OPERATION PERFORMED: Tenovaginotomy of right long finger. ANESTHESIA: General. HISTORY: The patient is a 43-year-old right hand-dominant male, who presents with stenosing tenosynovitis of the right long finger that is recalcitrant to conservative treatment. The risks, benefits, and alternatives of treatment were discussed with the patient and they are prepared to undergo the procedure as outlined. DESCRIPTION OF PROCEDURE: The patient was brought to the operating theater. After the induction of adequate general/regional anesthesia, the patient was prepped and draped in a supine position. A time out was performed by the entire operating room team. An oblique incision was marked out over the A1 tristan of the right long finger. The upper extremity was exsanguinated, and a tourniquet was inflated to a pressure of 250 mmHg. The incision was made through the skin and subcutaneous tissues. All venous tributaries were controlled with bipolar cautery. The incision was deepened through the palmar tissues. The neurovascular bundles on the radial and ulnar sides of the flexor tendon sheath were identified and retracted away from the flexor tendon sheath and preserved. The A1 tristan of the affected finger was identified and incised longitudinally, taking care to protect and preserve the flexor tendons within the sheath. After the complete length of the tristan had been transected, the tendons were placed in a range of motion. There was noted to be good motion without any locking. The wound was then copiously irrigated with bacteriostatic saline and closed with 5-0 nylon in an interrupted horizontal mattress fashion. A Marcaine field block was performed at the operative site. The tourniquet was deflated. All the fingers pinked up nicely. A sterile bulky conforming bandage was applied to the hand, and the patient was returned to the recovery room in satisfactory condition and was discharged with a postoperative instruction sheet as well as a followup appointment. Dennis Wallace MD ER/MODL /[id number]
== END | disposition home or self-care (01) ==
LOC: OR 05:19
PROVIDERS: ATTEND Plastic Surgery
DX: M65.331 Trigger finger, right middle finger (principal); E11.9 Type 2 diabetes mellitus without complications; I10 Essential (primary) hypertension; G47.33 Obstructive sleep apnea (adult) (pediatric); Z01.810 Encounter for preprocedural cardiovascular examination; Z01.812 Encounter for preprocedural laboratory examination; Z79.84 Long term (current) use of oral hypoglycemic drugs
CPT/HCPCS: 26055; 36415 ×2; 80048; 82948; J0690; J1100; J1885; J2001; J2250; J2405; J2704